=== PATIENT | female | born 1955 | race Hispanic/Latino ===

== ENCOUNTER 2021-04-13 18:28 | Emergency (ER) | payer SELFPAY ==
[~2021-04-13] VITALS: Ht 167.6 cm; Wt 89.8 kg
[2021-04-13] MEDS ORDERED: HYDRALAZINE HCL 20 MG/ML VIAL IV NR (19:00)
[2021-04-13] MEDS ORDERED: HYDRALAZINE HCL 20 MG/ML VIAL ONE (19:15)
[2021-04-13 21:25] VITALS: BP 166/93
== END 2021-04-13 20:35 | disposition home or self-care (01) ==
LOC: FSED 18:50
DX: I16.9 Hypertensive crisis, unspecified (principal); K76.9 Liver disease, unspecified; R10.33 Periumbilical pain; E11.65 Type 2 diabetes mellitus with hyperglycemia; I10 Essential (primary) hypertension; E78.5 Hyperlipidemia, unspecified
CPT/HCPCS: 70450; 74176; 80053; 84484; 85025; 99284; J0360; 93005